=== PATIENT | male | born 1960 | race Caucasian/White ===

== ENCOUNTER 2018-02-28 15:36 | Inpatient (IN) | payer OTHER ==
[2018-02-28] MEDS ORDERED: Aspirin 325 MG TAB ONE (16:12)
[2018-02-28] MEDS ORDERED: Enoxaparin Sodium 100 MG/ML SYRINGE ONE (16:12)
[2018-02-28] MEDS ORDERED: Diltiazem HCl 125 MG, Admixture Fee 1 EACH in Sodium Chloride 0.9% 100 ML IVPB SCH (16:15)
--- NOTE | 2018-02-28 16:42 | PDOC.FPRHP ---
- History of Present Illness Chief Complaint: anxiety History of Present Illness: Resident: Krystal Ortiz DO PCP: none, CC Patient is a 58yo with no PMH presents to outside ED with complaint of anxiety and palpitations. He was found to have initial HR in 140's. EKG revealed Afib with RVR, he was give 20mg of Cardizem and transferred here for admission. He is currently with HR of 80's. He reports a long hx of palpitations, remembering back even into his youth, but more frequent episodes over the last 2 -3 months. He reports yesterday around noon he felt palpitations that did not go away which is why he came to ED. He denies recent illness, no s/sx of infection. He reports hx of a pre-syncopal episode several months ago while mowing. He denies cardiac hx, LE edema, and CP. Reports occasional CHUNG, but only when having an "episode". He reports anxiety but usually related to these "episodes." ED Course: In our ED, patient was given 90mg of Lovenox and started on diltiazem drip. - Allergies/Adverse Reactions Allergies Allergy/AdvReac Type Severity Reaction Status Date / Time No Known Allergies Allergy Verified 02/28/18 18:08 - Home Medications Medication Instructions Recorded Confirmed Type Dronedarone HCl [Multaq] 400 mg PO BID-WM #60 tab 03/01/18 Rx Metoprolol Succinate [Toprol XL] 12.5 mg PO DAILY #30 tab 03/01/18 Rx Rivaroxaban [Xarelto] 20 mg PO 0600 #30 tab 03/01/18 Rx - History PMHx: Anxiety PSHx: none FHx: Mom- HTN, DM Dtr- thyroid problems Brother- CHF Social: Drinks daily on occasion, but CAGE questionaire neg, last drink 4 days ago, no hx of withdrawal sx, no hx tobacco use, denies drug abuse - Review of Systems General: denies: fever/chills, weight/appetite/sleep changes, night sweats Eyes: denies: eye pain, vision changes ENT: denies: nasal congestion, rhinorrhea Respiratory: reports: exercise intolerance. denies: cough, congestion, shortness of breath Cardiovascular: reports: palpitation. denies: chest pain, edema, orthopnea Gastrointestinal: denies: nausea, vomiting, diarrhea, constipation, abdominal pain Genitourinary: denies: dysuria, polyuria Skin: denies: rashes, lesions Musculoskeletal: denies: pain, tenderness, swelling Neurological: reports: syncope. denies: weakness Psychological: reports: anxiety. denies: depression - Vital signs BP: 118/88 HR: 84 RR: 16 Tmax: 97.6 Pox: 100% on RA Wt: 93kg - Physical Exam Constitutional: NAD, awake, alert and oriented, well developed -Constitutional: anxious appearing HEENT: normocephalic and atraumatic, PERRLA, EOMI, no scleral icterus, grossly normal vision, grossly normal hearing, normal nasal mucosa, MMM, oropharynx clear Neck: supple, FROM, trachea midline, no LAD, no JVD, no thyromegaly Chest: no-tender to palpation -Heart: tachycardic, irregularly irregular Lungs: CTAB, no respiratory distress, good air movement, no rales/rhonchi, no wheezing Abdomen: soft, non-tender, bowel sounds present Musculoskeletal: normal structure, normal tone Neurological: no focal deficit Skin: no rash/lesions, good turgor, capillary refill <2 seconds Heme/Lymphatic: no unusual bruising or bleeding Psychiatric: normal mood and affect, good judgment and insight, intact recent and remote memory FMR H&P: Results - Labs Result Diagrams: 03/01/18 04:52 Lab results: Laboratory Tests 02/28/18 02/28/18 02/28/18 14:11 14:11 14:11 WBC 7.5 RBC 5.11 Hgb 16.4 Hct 48.0 MCV 93.9 MCH 32.0 H MCHC 34.1 RDW 11.6 Plt Count 291 MPV 8.0 PT INR APTT Sodium 140 Potassium 4.0 Chloride 107 Carbon Dioxide 22 Anion Gap 15 BUN 15 Creatinine 1.24 Estimated GFR (MDRD) 60 Glucose 102 Calcium 9.4 Total Bilirubin 0.3 AST 20 ALT 20 Alkaline Phosphatase 83 CK-MB (CK-2) Troponin I B-Natriuretic Peptide 175.7 H Serum Total Protein 7.7 Albumin 4.3 Globulin 3.4 Albumin/Globulin Ratio 1.3 02/28/18 02/28/18 14:11 14:11 WBC RBC Hgb Hct MCV MCH MCHC RDW Plt Count MPV PT 13.8 INR 1.1 APTT 29.8 Sodium Potassium Chloride Carbon Dioxide Anion Gap BUN Creatinine Estimated GFR (MDRD) Glucose Calcium Total Bilirubin AST ALT Alkaline Phosphatase CK-MB (CK-2) 1.3 Troponin I Less than 0.010 B-Natriuretic Peptide Serum Total Protein Albumin Globulin Albumin/Globulin Ratio - EKG Interpretation EKG: Afib with RVR FMR H&P: A/P - Problem List (1) Atrial fibrillation with RVR Status: Acute Code(s): I48.91 - UNSPECIFIED ATRIAL FIBRILLATION (2) Anxiety Status: Acute Code(s): F41.9 - ANXIETY DISORDER, UNSPECIFIED (3) TERRY (acute kidney injury) Status: Acute Code(s): N17.9 - ACUTE KIDNEY FAILURE, UNSPECIFIED (4) Elevated brain natriuretic peptide (BNP) level Status: Acute Code(s): R79.89 - OTHER SPECIFIED ABNORMAL FINDINGS OF BLOOD CHEMISTRY - Plan Afib with RVR - new diagnosis but per hx, seems like this may have been going on for greater than a year. Currently HR ranging from 80's-110's. - Admit to tele and continue diltiazem drip - continue therapeutic lovenox, [id number] 0, once rate controlled can transition to ASA daily - TSH, Mg, Phos pending - echo pending - plan to consult cardiology for evaluation - trops neg x1, trend Elevated BNP - no s/sx of overload - echo pending TERRY vs CKD - GFR 60, Cr 1.24 - FeNa pending Anxiety - only happens with Afib episodes - prn Hydroxyzine if needed. VTE Ppx: Therapeutic Lovenox Code Status: Full Dispo: Likely <48h. FMR H&P: Upper Level - Plan Date/Time: 02/28/18 1640 I, [], have evaluated this patient and agree with findings/plan as outlined by unpaid intern resident. Pertinent changes/additions are listed here. Attending Addendum - Attending Addendum Date/Time: 03/01/18 0524 I personally evaluated the patient and discussed the management with Dr. Ortiz on 02/28/18 I agree with the History, Examination, Assessment and Plan documented above with any addition or exceptions noted below- Briefly this is a 58 yo male with no significant PMH but no recent medical care who presented c/o palpitations and weakness. Patient states that he has had intermittent palpitations for a long time but the episode today lasted longer then usual. Denies any CP or SOB. PMH/PSH/Meds/ All reviewed and agree with resident's documentation. Afebrile VSS exam repeated by me and agree with resident's findings. Labs: H/H= 16.4/48, Plt= 291, Tg=572, K+=4.0, BUN/Cr= 15/1.24, UMZ=923, Trop I<0.010 x 3. EKG- Afib with RVR and followup telemetry- NSR. A/P: 1) Newly diagnosed A-fib with RVR- now rate controlled; continue diltiazem drip and therapeutic lovenox. Echo ordered and will consult cardiology.
[2018-02-28] MEDS ORDERED: Acetaminophen 325 MG TAB PO PRN (17:40)
[2018-02-28] MEDS ORDERED: Ondansetron ODT 4 MG TAB PO PRN (17:40)
[2018-02-28 18:06] VITALS: BMI 27.2
[2018-02-28 19:05] LABS: Magnesium 1.9 mg/dL (1.6-2.6); Phosphorus 3.4 mg/dL (2.3-4.7)
[2018-02-28 20:13] LABS: Troponin I Less than 0.010 ng/mL (< 0.028)
[2018-02-28] MEDS: Enoxaparin Sodium 100 MG/ML SYRINGE SC SCH (21:29)
[2018-02-28 22:40] LABS: Troponin I Less than 0.010 ng/mL (< 0.028)
--- NOTE | 2018-03-01 07:42 | PDOC.FM ---
- Subjective Subjective: Patient is doing well this am. He does report some nervousness, stress, and anxiety. He converted to NSR overnight. Diltiazem drip was stopped due to bradycardia into the 50's. He is asymptomatic from that event. He is now having HR in the 80's. He denies CP, SOB, and palpitations at this time. - Objective MAR Reviewed: Yes Vital Signs & Weight: Vital Signs (12 hours) Temp Pulse Resp BP Pulse Ox 03/01/18 04:00 98.1 F 59 L 16 106/62 97 03/01/18 00:17 97.7 F 81 18 134/71 96 03/01/18 00:00 98.0 F 80 20 118/65 93 L 02/28/18 20:00 98 F 83 18 98 Weight Weight 98.43 kg I&O: 02/28/18 03/01/18 03/02/18 06:59 06:59 06:59 Intake Total 495 Output Total 800 Balance -305 Result Diagrams: 03/01/18 04:52 <Krystal Ortiz - Last Filed: 03/01/18 11:52> - Objective Vital Signs & Weight: Vital Signs (12 hours) Temp Pulse Resp BP Pulse Ox 03/01/18 11:50 97.8 F 64 17 138/74 98 03/01/18 08:22 98.4 F 68 17 130/73 98 03/01/18 04:00 98.1 F 59 L 16 106/62 97 Weight Weight 98.43 kg I&O: 02/28/18 03/01/18 03/02/18 06:59 06:59 06:59 Intake Total 495 540 Output Total 800 975 Balance -305 -435 Result Diagrams: 03/01/18 04:52 <Emir Powers - Last Filed: 03/01/18 15:13> Phys Exam - Physical Examination Constitutional: NAD HEENT: PERRLA, moist MMs Respiratory: no wheezing, no rales, clear to auscultation bilateral Cardiovascular: RRR, no significant murmur Gastrointestinal: soft, non-tender Musculoskeletal: no edema, pulses present Neurological: moves all 4 limbs Psychiatric: A&O x 3 Skin: cap refill <2 seconds <Krystal Ortiz - Last Filed: 03/01/18 11:52> Dx/Plan (1) Atrial fibrillation with RVR Code(s): I48.91 - UNSPECIFIED ATRIAL FIBRILLATION Status: Acute (2) Anxiety Code(s): F41.9 - ANXIETY DISORDER, UNSPECIFIED Status: Acute (3) TERRY (acute kidney injury) Code(s): N17.9 - ACUTE KIDNEY FAILURE, UNSPECIFIED Status: Acute (4) Elevated brain natriuretic peptide (BNP) level Code(s): R79.89 - OTHER SPECIFIED ABNORMAL FINDINGS OF BLOOD CHEMISTRY Status : Acute - Plan Plan: Afib with RVR - new diagnosis but per hx, seems like this may have been going on for greater than a year. Converted NSR last night, now with HR wnl. - Diltiazem ggt stopped due to bradycardia, consider PO dilt but will defer to cardiology - [id number] 0, recommend ASA daily - TSH, Mg, Phos wnl - echo pending - consult cardiology, appreciate recs - trops neg x3 Elevated BNP - no s/sx of overload - echo pending TERRY vs CKD - GFR 60, Cr 1.24 - FeNa pending Anxiety - will try Hydroxyzine prn - if refractory to hydroxyzine, consider SSRI <Krystal Ortiz - Last Filed: 03/01/18 11:52> Attending Addendum - Attending Addendum Date/Time: 03/01/18 1510 I personally evaluated the patient and discussed the management with Dr. Ortiz. I agree with the History, Examination, Assessment and Plan documented above with any addition or exceptions noted below. Feels fine now. Just a little nervous. Pulse regular, rate ~70. NSR on monitor. Cor: RRR, short mid systolic squeak Gr 1/6 murmur, Lungs: CTA. No edema. ECHO and cardiology consult pending. Will likely need mcfp ASA 81 for anticoagulation and consider Beta vincenzo, Ca channel vincenzo or amiodarone for rate control or an antiarrhytmic per whatever cardiology recommends. DAMc <Emir Powers - Last Filed: 03/01/18 15:13>
[2018-03-01] MEDS: Enoxaparin Sodium 100 MG/ML SYRINGE SC SCH (08:27)
[2018-03-01 10:20] LABS: Creatinine, Urine 179.61 mg/dL (63-166)
[2018-03-01 10:45] LABS: Anion Gap 10 mmol/L (10-20); BUN (Urea Nitrogen) 14 mg/dL (8.4-25.7); Calc. Creatinine Clearance 113 mL/min (70-130); Calcium 8.7 mg/dL (7.8-10.44); Carbon Dioxide 25 mmol/L (22-29); Chloride 109 mmol/L (98-107); Estimated GFR-MDRD 78; Glucose 75 mg/dL (70-105); Potassium 4.4 mmol/L (3.5-5.1); Sodium 140 mmol/L (136-145)
[2018-03-01] MEDS ORDERED: hydrOXYzine 10 MG/5 ML UDCUP PO PRN (10:46)
[2018-03-01] MEDS ORDERED: hydrOXYzine 25 MG TAB PO PRN (10:55)
[2018-03-01] MEDS ORDERED: hydrOXYzine 25 MG TAB PO SCH (11:00)
[2018-03-01] MEDS ORDERED: hydrOXYzine 10 MG/5 ML UDCUP PO SCH (11:00)
[2018-03-01 11:51] VITALS: BP 138/74
[2018-03-01 11:54] VITALS: TEMP 97.8
--- NOTE | 2018-03-01 13:54 | CON ---
DATE OF CONSULTATION: 03/01/2018 REASON FOR CONSULTATION: Atrial fibrillation, rapid ventricular response. HISTORY OF PRESENT ILLNESS: Mr. Castrejon is a very pleasant 58-year-old white gentleman, who comes to the hospital for palpitations and tiredness. He was found to be in atrial fibrillation and RVR, sta rted on diltiazem drip, and he broke back into sinus rhythm on his own. He is doing well. He has re mained in sinus since. Cardiology is being consulted for further evaluation of this. He tells me th at, for many years now, he has noticed episodes of palpitations, but in the last few months, he has n oticed that the episodes are longer and they are coming more frequently. Because of this, he was con cerned, and he decided to come in for evaluation. He, otherwise, denies any chest pain, tightness, p ressure. He does get short of breath during the episodes of palpitations. PAST MEDICAL HISTORY: None. PAST SURGICAL HISTORY: None. OUTPATIENT MEDICATIONS: None. ALLERGIES: No known drug allergies. FAMILY HISTORY: Mother with hypertension and diabetes. Father with thyroid issues. Brother with he art failure. SOCIAL HISTORY: Social alcohol use. No tobacco or drugs. REVIEW OF SYSTEMS: A 12-point review of systems was done and is all negative unless stated in the hi story of present illness. PHYSICAL EXAMINATION: VITAL SIGNS: Temperature 97.8, pulse 64, respiratory rate 17, satting 98% on room air, blood pressur e 138/74. GENERAL: Awake, alert, oriented x3, in no distress. HEENT: Normocephalic, atraumatic. NECK: Supple. LUNGS: Clear. CARDIOVASCULAR: S1 and S2, no S3 or S4, no murmurs, no rubs. ABDOMEN: Soft, positive bowel sounds. EXTREMITIES: No edema. SKIN: Warm and dry. LABORATORY WORK: Reviewed. CBC and CMP unremarkable. Troponins were negative x3. Triglycerides were 54, total cholesterol 145, LDL of 85, HDL of 49. TSH was normal. EKG is reviewed, atrial fibrillation/rapid ventricular response, back in sinus. Telemetry was reviewed. ASSESSMENT AND PLAN: 1. Paroxysmal atrial fibrillation, new diagnosis, because of his high burden of atrial fibrillation. At this point, we will start him on full anticoagulation with Xarelto 20 mg a day. We will also pu t him on Multaq 400 mg twice a day. Hopefully, we will be able to suppress his arrhythmia to the poi nt where he will not require any ablative procedures, and we may switch his Xarelto to aspirin within the next 3 months, if his atrial fibrillation burden is significantly less with Multaq. His CHADS-V ASc score is 0, so he is low risk. However, the amount of atrial fibrillation he is having right now , I would rather him have a blood thinner for now. 2. Echocardiogram findings are unremarkable. He will need to be on a beta vincenzo as well. Hopeful ly, this will not make his blood pressure drop too much. We will have him cut the 25 mg tablet of To prol-XL into half and just take that once a day. Thank you for allowing me to participate in the care of your patient. He should be able to be discha rged home later today. We will follow up with him in the office in 1 month.
[2018-03-01] MEDS ORDERED: Dronedarone HCl 400 MG TAB PO SCH (17:00)
--- NOTE | 2018-03-02 05:28 | DIS-2 ---
DATE OF ADMISSION: 02/28/2018 DATE OF DISCHARGE: 03/01/2018 RESIDENT: Dr. Krystal Ortiz. ADMITTING ATTENDING: Dr. Sue Andrade. DISCHARGE ATTENDING: Dr. Emir Powers. CONSULTATION: Cardiology, Dr. Doni Beckman. IMAGING/PROCEDURES: Echocardiogram shows ejection fraction of 60-65%, normal diastolic function, and mild mitral and tricuspid regurgitation. PRIMARY DIAGNOSIS: Atrial fibrillation with rapid ventricular response, resolved. SECONDARY DIAGNOSES: 1. Anxiety. 2. Acute kidney injury, resolved. DISCHARGE MEDICATIONS: 1. Xarelto 20 mg p.o. daily. 2. Metoprolol succinate 12.5 mg p.o. daily. 3. Multaq 400 mg p.o. b.i.d. DISCONTINUED MEDICATIONS: None. HISTORY OF PRESENT ILLNESS AND HOSPITAL COURSE: The patient is a 58-year-old male who presented to outside ED for 2-3 month history of palpitations. They would come and go. The day before admission, it started at noon and then continued which is why he came in. In the outside facility on presentation, he presented with a heart rate of 140, found to be in atrial fibrillation with RVR. He was given 20 mg of Cardizem prior to transfer. On arrival to our facility, he was with heart rate of 80, but trending upwards. He was placed on a diltiazem drip. The drip was weaned off that evening. He was transitioned to p.o. medications. Cardiology was consulted and recommended full anticoagulation with Xarelto and rhythm control with Multaq 400 mg twice daily. He had an echocardiogram performed which was unremarkable. Laboratory findings showed no elevation in troponins, normal fasting lipid panel, normal BNP, a slight TERRY which resolved, and CBC within normal limits. TSH was also checked, which was normal. The patient does have significant anxiety and hydroxyzine was used as a trial medication. Although with addition of Multaq, there is risk of QT prolongation. Will defer this to PCP. Likely start SSRI although patient was not keen on the idea of a daily medication. The patient is to follow up in [place] with Dr. Faulkner. DISPOSITION: Stable. DISCHARGE INSTRUCTIONS: 1. Location: Home. 2. Diet: Regular. 3. Activity: As tolerated. 4. Followup: Follow up with Dr. Faulkner in [place] within 1-2 weeks. F/u with Dr. Beckman in 1 month. MTDD
[2018-03-02] MEDS ORDERED: Rivaroxaban 10 MG TAB PO SCH (06:00)
== END 2018-03-01 15:56 | disposition home or self-care (01) | DRG 309 ==
LOC: ERS 15:36 → 2NO 17:55
PROVIDERS: ADMIT Family Medicine; ATTEND Family Medicine
DX: I48.0 Paroxysmal atrial fibrillation (principal); N17.9 Acute kidney failure, unspecified; F41.9 Anxiety disorder, unspecified; N18.9 Chronic kidney disease, unspecified
CPT/HCPCS: 36415; 80048; 80061; 82570; 83735; 84100; 84300; 84443; 93005; 93306; 96365; 96372; J1650; J7050